=== PATIENT | male | born 1950 | race Caucasian/White ===

== ENCOUNTER → 2020-09-01 | Outpatient (CLI) | payer MEDICARE ==
[~2020-09-01] MED LIST: GASTROGRAFIN SOLUTION 30ML (Q9963) As Ordered ONE; ISOVUE-370 76% 100ML VIAL As Ordered ONE
--- NOTE | 2020-09-01 12:08 | REP ---
INDICATION: LLQ PAIN. COMPARISON: None. Patient states she has had priors in [place] but does not know where they are. TECHNIQUE: Standard helical technique after the administration of both 100 cc of Isovue 370 intravenously and oral bowel preparatory contrast administration FINDINGS: There are chronic changes seen in the lung bases. There is a spiculated density in the right lower lobe which measures 1.5 centimeters excluding the spiculations. The liver, gallbladder, spleen, pancreas, and adrenal glands are within normal limits. There are multiple bilateral renal cysts some are too small for precise CT characterization and others have slightly higher than water density Hounsfield unit readings. None of these have septations or thick mural nodules or thick castro. The bowel loops and the mesenteries are within normal limits. The osseous structures are within normal limits for the patient's age. The abdominal aorta and para-regions are within normal limits for the patient's age. IMPRESSION: 1. There is a spiculated nodule in the right lung lower lobe as described above. Since I do not have priors for comparison this nodule represents a category 4 X lesion as per the revised Fleischner society criteria and for which CT-PET is recommended and/or tissue sampling if clinically relevant. 2. Multiple bilateral Bosniak class 1 and class 2 renal cysts. Since they do not have priors for comparison renal MRI should be considered. 3. Other findings as described above. <Electronically signed by Gus Perry > 09/01/20 [id number]
== END ==
LOC: M RAD 09:38
PROVIDERS: ATTEND Nurse Practitioner Family
DX: R10.32 Left lower quadrant pain (principal)
CPT/HCPCS: 74177; Q9963; Q9967

== ENCOUNTER → 2020-09-21 | Outpatient (CLI) | payer MEDICARE ==
[~2020-09-21] MED LIST changes: -GASTROGRAFIN SOLUTION 30ML (Q9963) As Ordered ONE; -ISOVUE-370 76% 100ML VIAL As Ordered ONE; +PROHANCE 279.3MG/ML 15ML VIAL As Ordered ONE
--- NOTE | 2020-09-21 10:13 | REP ---
INDICATION: EVAL RENAL CYST. COMPARISON: CT 09/01/2020. TECHNIQUE: Multiple sequences obtained in the axial coronal planes prior to and following the intravenous administration of 12 cc ProHance. FINDINGS: There are multiple bilateral renal cysts present with no suspicious internal enhancement. The largest cyst on the right is in the mid aspect laterally measuring approximately 1.4 cm in maximum diameter. The largest cyst on the left is in the upper pole and maximum diameter is 3.4 cm. A cluster of hemorrhagic cysts is seen posteriorly in the mid left kidney, measuring approximately 2.3 cm in maximum diameter. There is no hydronephrosis bilaterally. No significant abnormality is seen of the liver or spleen. There is mild bilateral adrenal gland thickening, with a nodule of the right adrenal gland demonstrating characteristics of an adenoma measuring approximately 1.6 cm in maximum diameter. There is no abnormality of the pancreas. Common bile duct is slightly prominent in size with a maximum diameter of 8 mm. The gallbladder is unremarkable. There is no evidence of adenopathy or free fluid in the abdomen. The abdominal aorta is normal in caliber. IMPRESSION: Multiple benign bilateral renal cysts as discussed in detail above. <Electronically signed by Andrey Campuzano > 09/21/20 [id number]
== END ==
LOC: M RAD 07:10
PROVIDERS: ATTEND Nurse Practitioner Family
DX: N28.1 Cyst of kidney, acquired (principal)
CPT/HCPCS: 74183; A9576

== ENCOUNTER → 2020-09-26 | Outpatient (CLI) | payer MEDICARE ==
--- NOTE | 2020-09-27 11:36 | REP ---
INDICATION: SOLITARY PULMONARY NODULE R91.1 COMPARISON: There are no prior PET CTs for comparison. Previous CT of the abdomen and pelvis 09/01/2020 which showed a spiculated nodule in the right lung base was reviewed. TECHNIQUE: After the intravenous administration of 10.07 mCi of FDG 18 triplane whole-body PET-CT was performed from the skull base to the mid thigh. FINDINGS: In the right paratracheal region there is a mildly enlarged lymph node which is hypermetabolic having a maximal SUV value of 2.56. Borderline subcarinal lymph nodes are also noted having a maximal SUV value of 2.64. The spiculated appearing right lung nodule is not hypermetabolic. No other areas of abnormal hypermetabolic activity are seen in the neck, chest, abdomen, or pelvis. IMPRESSION: There is mediastinal hypermetabolism as described above the etiology of which is uncertain. This could be postinflammatory in nature or neoplastic. Further evaluation is necessary. The spiculated nodule seen on the prior CT in the right lower lobe is not abnormally hypermetabolic. <Electronically signed by Gus Perry > 09/27/20 [id number]
== END ==
LOC: M PLARAD 07:55
PROVIDERS: ATTEND Nurse Practitioner Family
DX: R91.1 Solitary pulmonary nodule (principal)
CPT/HCPCS: 78815; A9552

== ENCOUNTER → 2021-02-06 | Outpatient (CLI) | payer MEDICARE ==
--- NOTE | 2021-02-06 15:08 | REP ---
INDICATION: STAGING LUNG CANCER. COMPARISON: PET-CT 09/26/2020 TECHNIQUE: After the intravenous administration of 8.86 mCi of FDG 18 triplane whole-body PET-CT was performed from the skull base to the mid thigh FINDINGS: In the suprahyoid neck paraspinal soft tissues there are numerous foci of hypermetabolism with the highest SUV value of 4.06 on the right. The CT component of this examination shows no corresponding adenopathy or mass in any of those posterior neck soft tissues. In the posterior neck soft tissues at the level of C3-4 5 in the fascial plane between the posterior neck musculature there is a focus of abnormal hypermetabolic activity with an SUV value of 4.72. Again, there is no corresponding mass seen on the CT component of today's exam. In the soft tissues posterior and medial to the glenohumeral joint of each shoulder there is additional hyper metabolite with a maximal SUV value of 4.92 on the left. Again, there is no corresponding mass and the increased activity is between muscle body groups within the connective tissue. This is also seen anteriorly on the left with an SUV value of 3.48. The mediastinal adenopathy seen on the prior examination is again noted and has a maximal SUV value of 3.3 today. No other areas of abnormal hypermetabolic activity is seen in the neck, chest, abdomen, or pelvis. IMPRESSION: 1. There is persistent mediastinal hypermetabolic activity as described above and the etiology of which remains uncertain. 2. There is new rather bizarre soft tissue hypermetabolic activity seen in the neck and upper chest soft tissues described above. The CT component of today's exam shows no discernible adenopathy or masses in those regions. Myofascial inflammatory disease could certainly be responsible for the finding. This needs to be correlated clinically with appropriate follow-up. <Electronically signed by Gus Perry > 02/06/21 [id number]
== END ==
LOC: M PLARAD 10:48
PROVIDERS: ATTEND Internal Medicine Pulmonary Disease
DX: R91.1 Solitary pulmonary nodule (principal); R59.0 Localized enlarged lymph nodes; F17.218 Nicotine dependence, cigarettes, with other nicotine-induced disorders
CPT/HCPCS: 78815; A9552

== ENCOUNTER → 2021-02-17 | Outpatient (REF) | payer MEDICARE ==
[2021-02-17 18:12] LABS: BASO % 0.9 % (0.0-1.0); EOS # 0.1 10^3/uL (0.0-0.5); EOS % 3.1 % (0.0-3.0); HEMATOCRIT 42.5 % (42.0-52.0); HEMOGLOBIN 14.5 g/dl (13.5-17.5); LYMPH # 0.7 10^3/uL (1.5-5.0); LYMPH % 16.2 % (24.0-44.0); MEAN CORPUSCULAR HEMOGLOBIN 32.2 pg (27.0-33.0); MEAN CORPUSCULAR HGB CONC 34.1 g/dl (32.0-36.5); MEAN CORPUSCULAR VOLUME 94.2 fl (80.0-96.0); MONO # 0.3 10^3/uL (0.0-0.8); NEUTROPHILS # 3.3 10^3/uL (1.5-8.5); NEUTROPHILS % 72.6 % (36.0-66.0); PLATELET COUNT, AUTOMATED 143 10^3/uL (150-450); RED BLOOD COUNT 4.51 10^6/uL (4.30-6.10); WHITE BLOOD COUNT 4.6 10^3/uL (4.0-10.0)
[2021-02-17 18:35] LABS: ALBUMIN 4.2 GM/DL (3.2-5.2); ALT/SGPT 44 U/L (12-78); BILIRUBIN,TOTAL 0.6 MG/DL (0.2-1.0); BLOOD UREA NITROGEN 10 MG/DL (7-18); CALCIUM LEVEL 9.5 MG/DL (8.8-10.2); CARBON DIOXIDE LEVEL 32 MEQ/L (21-32); CHLORIDE LEVEL 93 MEQ/L (98-107); CREATININE FOR GFR 0.75 MG/DL (0.70-1.30); GLOMERULAR FILTRATION RATE > 60.0 (>49); GLUCOSE, FASTING 97 MG/DL (70-100); RHEUMATOID FACTOR QUANT 12.1 IU/ML (<15.0); SODIUM LEVEL 127 MEQ/L (136-145); TOTAL PROTEIN 8.4 GM/DL (6.4-8.2)
[2021-02-17 20:42] LABS: ERYTHROCYTE SEDIMENTATION RATE 9 mm/hr (0-20)
== END ==
LOC: M LAB REF 17:24
PROVIDERS: ATTEND Internal Medicine Pulmonary Disease
DX: J44.9 Chronic obstructive pulmonary disease, unspecified (principal)

== ENCOUNTER → 2021-06-12 | Outpatient (CLI) | payer MEDICARE ==
[~2021-06-12] MED LIST changes: +ISOVUE-370 76% 100ML VIAL As Ordered ONE; -PROHANCE 279.3MG/ML 15ML VIAL As Ordered ONE
== END ==
LOC: M RAD 10:44
PROVIDERS: ATTEND Internal Medicine Pulmonary Disease
DX: R59.0 Localized enlarged lymph nodes (principal)
CPT/HCPCS: 71260; Q9967

== ENCOUNTER → 2022-05-10 | Outpatient (CLI) | payer MEDICARE | LOC: M RAD 10:33 | PROVIDERS: ATTEND Internal Medicine Critical Care Medicine | DX: R59.0 Localized enlarged lymph nodes (principal); N28.1 Cyst of kidney, acquired | CPT/HCPCS: 71260; Q9967 ==